=== PATIENT | female | born 1980 | race Caucasian/White ===

== ENCOUNTER 2018-07-30 20:44 | Emergency (ER) | payer OTHER ==
[2018-07-30 20:50] VITALS: BP 135/83; PULSE 73; TEMP 99.5; BMI 39.7
--- NOTE | 2018-07-30 21:18 | PDOC ---
History of Present Illness - General History Source: Patient Exam Limitations: No Limitations - History of Present Illness Initial Comments: 07/30/18 21:50 The patient is a 38 year old female, with a significant past medical history of 2 C-sections, HTN, hyperthyroidism, and migraines who presents to the emergency department with cough and cold symptoms since Sunday with 1 episode of nbnb vomiting. The patient reports her symptoms are associated with chills and body aches. The patient notes her son had similar symptoms last week. Patient reports she did not take the flu shot. The patient denies chest pain, shortness of breath, headache or dizziness. The patient denies diarrhea or constipation. The patient denies dysuria, frequency, urgency or hematuria. PAST MEDICAL HISTORY: no significant history PAST SURGICAL HISTORY: Cholecystectomy FAMILY HISTORY: no pertinent history SOCIAL HISTORY: Pt lives with family and is employed. MEDICATIONS: reviewed ALLERGIES: As per nursing notes <Gage Jefferson - Last Filed: 07/30/18 21:50> - General History Source: Patient Exam Limitations: No Limitations - History of Present Illness Initial Comments: 07/30/18 21:54 A portion of this note was documented by scribe services under my direction. I have reviewed the details of the note, within reason, and agree with the documentation with the following case summary and management plan written by me. Patient treated in the ED. Nursing notes are reviewed and incorporated into the medical decision-making. Vital signs reviewed. Assessment and plan: This is a 38-year-old female who comes in complaining of upper respiratory tract symptoms fever, chills, body ache, headaches. Patient's son had similar symptoms recently. This is day 3 of that for patient. A flu swab was attempted as patient did not get immunized against the flu. However patient was able to tolerate the procedure and refuse a flu swab so patient was started on Tamiflu and discharged. First dose was given in the ED. <Rakesh Huber I - Last Filed: 07/30/18 21:54> - General Chief Complaint: Respiratory Stated Complaint: COUGH & COLD SX Time Seen by Provider: 07/30/18 21:01 Past History <Gage Jefferson - Last Filed: 07/30/18 21:50> - Past Medical History COPD: No HTN: Yes Thyroid Disease: Yes - Surgical History Cholecystectomy: Yes - Immunization History Immunization Up to Date: Yes - Suicide/Smoking/Psychosocial Hx Smoking History: Never smoked Have you smoked in the past 12 months: No Number of Cigarettes Smoked Daily: 0 Cigars Per Day: 0 Information on smoking cessation initiated: No Hx Alcohol Use: No Drug/Substance Use Hx: No Substance Use Type: None <Rakesh Huber I - Last Filed: 07/30/18 21:54> - Past Medical History Allergies/Adverse Reactions: Allergies Allergy/AdvReac Type Severity Reaction Status Date / Time No Known Allergies Allergy Verified 07/30/18 20:45 Home Medications: Ambulatory Orders Nebivolol HCl [Bystolic] 10 mg PO DAILY 07/30/18 Oseltamivir Phosphate [Tamiflu] 75 mg PO BID #10 capsule 07/30/18 Review of Systems - Review of Systems Able to Perform ROS?: Yes Comments:: 07/30/18 21:51 General: (+)chills, (+) body aches. (+) cough. no weakness, no weight loss HEENT: No change in vision. No sore throat,. No ear pain CardioVascular: No chest pain or shortness of breath Respiratory:No cough, or wheezing. Gastrointestinal: (+) vomiting. no nausea, diarrhea or constipation, No rectal bleeding Genitourinary: No dysuria, hematuria, or frequency Musculoskeletal: No joint or muscle pain or swelling Neurologic: No headache, vertigo, dizziness or loss of consciousness Psychiatric: nor depression Skin: No rashes or easy bruising Endocrine: no increased thirst or abnormal weight change Allergic: no skin or latex allergy All other systems reviewed and normal All Other Systems: Reviewed and Negative <Gage Jefferson - Last Filed: 07/30/18 21:50> *Physical Exam - Vital Signs Last Vital Signs Temp Pulse Resp BP Pulse Ox 99.5 F 73 18 135/83 100 07/30/18 20:44 07/30/18 20:44 07/30/18 20:44 07/30/18 20:44 07/30/18 20:44 - Physical Exam Comments: 07/30/18 21:52 General: Well-nourished well-developed individual, no acute distress HEENT: Throat: Normal, tonsils normal, no erythema or exudate Neck: Supple, no meningeal signs, no lymphadenopathy Eyes::Pupils equal reactive and round, extraocular motion intact Chest: Nontender to palpation Cardiac: S1-S2 normal, regular rate and rhythm, no murmurs rubs or gallops Respiratory: Lungs clear to auscultation bilateral Extremities: Warm, dry, no cyanosis, clubbing, or edema Skin: No rashes Neuro: Alert and oriented x3, nonfocal exam, grossly intact, normal gait Psych: Normal mood and affect <Gage Jefferson - Last Filed: 07/30/18 21:50> - Vital Signs Last Vital Signs Temp Pulse Resp BP Pulse Ox 99.5 F 73 18 135/83 100 07/30/18 20:44 07/30/18 20:44 07/30/18 20:44 07/30/18 20:44 07/30/18 20:44 <Rakesh Huber I - Last Filed: 07/30/18 21:54> Moderate Sedation - Procedure Monitoring Vital Signs: Procedure Monitoring Vital Signs Temperature 99.5 F 07/30/18 20:44 Pulse Rate 73 07/30/18 20:44 Respiratory Rate 18 07/30/18 20:44 Blood Pressure 135/83 07/30/18 20:44 O2 Sat by Pulse Oximetry (%) 100 07/30/18 20:44 <Gage Jefferson - Last Filed: 07/30/18 21:50> - Procedure Monitoring Vital Signs: Procedure Monitoring Vital Signs Temperature 99.5 F 07/30/18 20:44 Pulse Rate 73 07/30/18 20:44 Respiratory Rate 18 07/30/18 20:44 Blood Pressure 135/83 07/30/18 20:44 O2 Sat by Pulse Oximetry (%) 100 07/30/18 20:44 <Rakesh Huber I - Last Filed: 07/30/18 21:54> ED Treatment Course - Medications Given in the ED: ED Medications Discontinued Medications Generic Name Dose Route Start Last Admin Trade Name Freq PRN Reason Stop Dose Admin Acetaminophen 1,000 mg 07/30/18 21:27 07/30/18 21:32 Tylenol - PO 07/30/18 21:28 1,000 mg ONCE ONE Administration Oseltamivir Phosphate 75 mg 07/30/18 21:32 07/30/18 21:34 Tamiflu - PO 07/30/18 21:33 75 mg ONCE ONE Administration <Gage Jefferson - Last Filed: 07/30/18 21:50> *DC/Admit/Observation/Transfer - Attestations Scribe Attestion: 07/30/18 21:52 Documentation prepared by Gage Jefferson, acting as biomedical field service engineer for Rakesh Huber MD <Gage Jefferson - Last Filed: 07/30/18 21:50> - Discharge Dispostion Decision to Admit order: No <Rakesh Huber I - Last Filed: 07/30/18 21:54> Diagnosis at time of Disposition: Influenza-like illness - Discharge Dispostion Disposition: HOME Condition at time of disposition: Stable - Prescriptions Prescriptions: Oseltamivir Phosphate [Tamiflu] 75 mg PO BID #10 capsule - Referrals Referrals: Emigdio Arora MD [Primary Care Provider] - - Patient Instructions Additional Instructions: Since I was unable to get an influenza screen on U I am going to go ahead and start treating him for the flu. I gave your first dose here in the emergency room and a sent a prescription to your pharmacy. Get the prescription filled and take it twice a day for 5 days. Tylenol or Motrin as needed for pain or fevers or body aches. Return to the emergency department immediately with ANY new, persistent or worsening symptoms. Continue any medications as previously prescribed by your physician. You should follow up with your primary doctor as soon as possible regarding today's emergency department visit. . Please make sure your doctor reviews the results of your emergency evaluation. Thank you for coming to the Emergency Department today for your care. It was a pleasure to see you today. Please note that your evaluation is INCOMPLETE until you follow-up with your doctor. - Post Discharge Activity
[2018-07-30] MEDS ORDERED: ACETAMINOPHEN 500 MG TABLET (FP) PO ONE (21:27)
[2018-07-30] MEDS ORDERED: OSELTAMIVIR PHOSPHATE 75 MG CAPSULE ONE (21:30)
[2018-07-30] MEDS ORDERED: ACETAMINOPHEN 500 MG TABLET (FP) ONE (21:30)
[2018-07-30] MEDS ORDERED: OSELTAMIVIR PHOSPHATE 75 MG CAPSULE PO ONE (21:32)
== END 2018-07-30 21:42 | disposition home or self-care (01) ==
LOC: FER 20:44
DX: J11.1 Influenza due to unidentified influenza virus with other respiratory manifestations (principal); I10 Essential (primary) hypertension; E07.9 Disorder of thyroid, unspecified
CPT/HCPCS: 99282-25

== ENCOUNTER 2019-02-03 13:34 | Inpatient (IN) | payer OTHER ==
--- NOTE | 2019-02-03 13:47 | PDOC ---
Rapid Medical Evaluation Time Seen by Provider: 02/03/19 13:45 Medical Evaluation: Allergies Allergy/AdvReac Type Severity Reaction Status Date / Time No Known Allergies Allergy Verified 07/30/18 20:45 02/03/19 13:45 Patient had brief in-person examination in triage cc: sent for low h&H HPI: alert and oriented x 1 no skin pallor orders: labs ordered This patient will proceed to ed for further evaluation Discharge Disposition - Diagnosis Anemia - Referrals - Patient Instructions - Post Discharge Activity
[2019-02-03 14:40] LABS: BASO % 0.8 % (0-2.0); EOS % 4.8 % (0-4.5); HEMATOCRIT 23.2 % (32.4-45.2); HEMOGLOBIN 7.3 GM/dL (10.7-15.3); LYMPH % 29.6 % (8-40); MCH 23.2 pg (25.7-33.7); MCHC 31.6 g/dl (32.0-36.0); MEAN CELL VOLUME 73.4 fl (80-96); MEAN PLT VOLUME 8.3 fl (7.5-11.1); MONO % 8.4 % (3.8-10.2); NEUT % 56.4 % (42.8-82.8); PLATELET COUNT 335 K/MM3 (134-434); RBC 3.16 M/mm3 (3.60-5.2); RDW 16.2 % (11.6-15.6); WHITE BLOOD COUNT 5.6 K/mm3 (4.0-10.0)
[2019-02-03 14:54] LABS: EPI CELLS 3.6 /HPF (0-5/HPF); HYALINE CASTS 2 /lpf (0-8); URINE APPEARANCE CLEAR; URINE BACTERIA 69.3 /hpf (NEGATIVE); URINE BILIRUBIN NEGATIVE (NEGATIVE); URINE COLOR YELLOW; URINE GLUCOSE (UA) NEGATIVE (NEGATIVE); URINE KETONE NEGATIVE (NEGATIVE); URINE LEUK ESTERASE NEGATIVE (NEGATIVE); URINE NITRITE NEGATIVE (NEGATIVE); URINE PROTEIN NEGATIVE (NEGATIVE); URINE RBC 2 /hpf (0-4); URINE UROBILINOGEN 0.2 mg/dL (0.2-1.0); URINE WBC 1 /hpf (0-5)
[2019-02-03 15:09] LABS: ALBUMIN 3.5 g/dl (3.4-5.0); BILIRUBIN,TOTAL 0.1 mg/dL (0.2-1); CALCIUM 9.9 mg/dL (8.5-10.1); CREATININE 0.9 mg/dL (0.55-1.3); POTASSIUM 4.1 mmol/L (3.5-5.1); TOT PROT 7.1 g/dl (6.4-8.2)
--- NOTE | 2019-02-03 15:19 | PDOC ---
History of Present Illness - General Chief Complaint: Blood Pressure Problem Stated Complaint: SENT BY PCP LOW H/H, HTN Time Seen by Provider: 02/03/19 13:45 - History of Present Illness Initial Comments: 02/03/19 15:16 38 yo F with h/o HTN, x 2, Hyperthyroidism, GERD, Cholecystectomy, and migraine disorder who p/w vaginal bleeding. Patient referred to ED with vaginal bleeding, and low hemoglobin per patient. Patient reports ongoing abnml vaginal bleeding beginning 09/27, with daily bleeding, and intermittent clotting. Typically requires 5 pads per day, with dark brown/red spotting. Prior TVUS (09/24/18) with thickening of the endometrial stripe with heterogeneous echotexture and tiny cystic densities, consistent with endometrial hyperplasia vs. endometrial polyps. Patient reports scheduled hysteroscopy this 02/07/19. Patient denies JAIN, vision change, palpitations, cough, wheezing, orthopena, PND , leg swelling/pain, N/V, F,C, CP, SOB, urinary complaints, vaginal/pelvic pain/ discharge, hematuria, BPR, abdominal pain, diarrhea, constipation, lightheadedness, weakness, sensory changes. PMHx: as noted above ROS: as noted SHx: Denies Etoh, IVDA, tobacco use Allergies: NKDA Past History - Past Medical History Allergies/Adverse Reactions: Allergies Allergy/AdvReac Type Severity Reaction Status Date / Time No Known Allergies Allergy Verified 02/03/19 13:48 Home Medications: Ambulatory Orders Nebivolol HCl [Bystolic] 10 mg PO DAILY 07/30/18 Oseltamivir Phosphate [Tamiflu] 75 mg PO BID #10 capsule 07/30/18 COPD: No HTN: Yes Thyroid Disease: Yes - Surgical History Cholecystectomy: Yes - Immunization History Immunization Up to Date: Yes - Suicide/Smoking/Psychosocial Hx Smoking History: Never smoked Have you smoked in the past 12 months: No Number of Cigarettes Smoked Daily: 0 Cigars Per Day: 0 Information on smoking cessation initiated: No Hx Alcohol Use: No Drug/Substance Use Hx: No Substance Use Type: None Review of Systems - Review of Systems Comments:: 02/03/19 15:18 GENERAL/CONSTITUTIONAL: No fever or chills. No weakness. HEAD, EYES, EARS, NOSE AND THROAT: No change in vision. No ear pain or discharge. No sore throat. CARDIOVASCULAR: No chest pain or shortness of breath RESPIRATORY: No cough, wheezing, or hemoptysis. GASTROINTESTINAL: No nausea, vomiting, diarrhea or constipation. GENITOURINARY: + Vaginal bleeding. No dysuria, frequency, or change in urination. MUSCULOSKELETAL: No joint or muscle swelling or pain. No neck or back pain. SKIN: No rash NEUROLOGIC: No headache, vertigo, loss of consciousness, or change in strength/ sensation. ENDOCRINE: No increased thirst. No abnormal weight change HEMATOLOGIC/LYMPHATIC: No anemia, easy bleeding, or history of blood clots. ALLERGIC/IMMUNOLOGIC: No hives or skin allergy. *Physical Exam - Vital Signs Last Vital Signs Temp Pulse Resp BP Pulse Ox 98.5 F 78 19 171/76 H 98 02/03/19 13:46 02/03/19 13:46 02/03/19 13:46 02/03/19 13:46 02/03/19 13:46 - Physical Exam Comments: 02/03/19 15:18 GENERAL: Awake, alert, and fully oriented, in no acute distress HEAD: No signs of trauma, normocephalic, atraumatic EYES: PERRLA, EOMI, sclera anicteric, conjunctiva clear ENT: Auricles normal inspection, hearing grossly normal, nares patent, oropharynx clear without exudates. Moist mucosa NECK: Normal ROM, supple, no lymphadenopathy, JVD, or masses LUNGS: No distress, speaks full sentences, clear to auscultation bilaterally HEART: Regular rate and rhythm, normal S1 and S2, no murmurs, rubs or gallops, peripheral pulses normal and equal bilaterally. ABDOMEN: Soft, nontender, normoactive bowel sounds. No guarding, no rebound. No masses EXTREMITIES : Normal inspection, Normal range of motion, no edema. No clubbing or cyanosis. NEUROLOGICAL: Cranial nerves II through XII grossly intact. Normal speech, normal gait, no focal sensorimotor deficits SKIN: Warm, Dry, normal turgor, no rashes or lesions noted ED Treatment Course - LABORATORY CBC & Chemistry Diagram: 02/03/19 14:23 02/03/19 14:23 - ADDITIONAL ORDERS Additional order review: Laboratory Results 02/03/19 02/03/19 02/03/19 14:23 14:20 14:20 Sodium 140 Potassium 4.1 Chloride 108 H Carbon Dioxide 28 Anion Gap 5 L BUN 14.0 Creatinine 0.9 Est GFR (CKD-EPI)AfAm 94.67 Est GFR (CKD-EPI)NonAf 81.68 Random Glucose 113 H Calcium 9.9 Total Bilirubin 0.1 L AST 21 ALT 21 Alkaline Phosphatase 54 Total Protein 7.1 Albumin 3.5 Urine Color Yellow Urine Appearance Clear Urine pH 7.0 Ur Specific [place] 1.018 Urine Protein Negative Urine Glucose (UA) Negative Urine Ketones Negative Urine Blood 3+ H Urine Nitrite Negative Urine Bilirubin Negative Urine Urobilinogen 0.2 Ur Leukocyte Esterase Negative Urine WBC (Auto) 1 Urine RBC (Auto) 2 Urine Casts (Auto) 2 U Epithel Cells (Auto) 3.6 Urine Bacteria (Auto) 69.3 Urine HCG, Qual Negative 02/03/19 14:23 RBC 3.16 L MCV 73.4 L MCHC 31.6 L RDW 16.2 H MPV 8.3 D Neutrophils % 56.4 D Lymphocytes % 29.6 D Monocytes % 8.4 Eosinophils % 4.8 H Basophils % 0.8 Medical Decision Making - Medical Decision Making 02/03/19 15:22 38 yo F with h/o HTN, x 2, Hyperthyroidism, GERD, Cholecystectomy, and migraine disorder who p/w vaginal bleeding. BP 171/76, vitals otherwise wnl , AF, A&Ox3. Physical exam unremarkable. Patient denies symptoms of anemia. Denies palpitations, N/V, F/C, CP, SOB, urinary complaints, vaginal/pelvic pain/ discharge, hematuria, BPR, abdominal pain, diarrhea, lightheadedness, weakness, sensory changes. Will assess for , anemia requiring transfusions, electrolyte abnml, metabolic and acid-base derangement. Ed Course: 02/03/19 15:48 Laboratory Tests 02/03/19 02/03/19 02/03/19 14:20 14:20 14:23 WBC 5.6 Hgb 7.3 L Hct 23.2 L D Plt Count 335 D Sodium Potassium BUN Creatinine Random Glucose Urine Color Yellow Urine Appearance Clear Urine Blood 3+ H Urine Nitrite Negative Ur Leukocyte Esterase Negative Urine HCG, Qual Negative 02/03/19 14:23 WBC Hgb Hct Plt Count Sodium 140 Potassium 4.1 BUN 14.0 Creatinine 0.9 Random Glucose 113 H Urine Color Urine Appearance Urine Blood Urine Nitrite Ur Leukocyte Esterase Urine HCG, Qual 02/03/19 16:12 Patient consents to PRBC 2 U 02/03/19 17:[address] [employer] [address]. Lewis, patient not candidate for emergent hysterscopy. Patient to be admitted to medicine. Endorsed to Dr. Luna. 02/03/19 17:[address] Chacon *DC/Admit/Observation/Transfer Diagnosis at time of Disposition: Anemia requiring transfusions - Discharge Dispostion Condition at time of disposition: Stable Decision to Admit order: Yes - Referrals Referrals: Emigdio Arora MD [Primary Care Provider] - - Patient Instructions Additional Instructions: Please return to the emergency department with any new or worsening symptoms or concerns. Please follow up with your primary care physician within 72 hours. - Post Discharge Activity
--- NOTE | 2019-02-03 17:21 | PDOC ---
Documentation entered by Gage Jefferson SCRIBE, acting as scribe for Manisha Bateman MD. Manisha Bateman MD: This documentation has been prepared by the Ronny powell Xhesika, SCRIBE, under my direction and personally reviewed by me in its entirety. I confirm that the documentation accurately reflects all work, treatment, procedures, and medical decision making performed by me. Attending Attestation - Resident Resident Name: Steve Parks - ED Attending Attestation I have performed the following: I have examined & evaluated the patient, The case was reviewed & discussed with the resident, I agree w/resident's findings & plan, Exceptions are as noted - HPI HPI: 02/03/19 16:18 The patient is a 38 year old female with a significant PMH of 2 C-sections, HTN , hyperthyroidism, and migraines who presents to the emergency department with vaginal bleeding and low hemoglobin. Patient states her vaginal bleeding began , associated with intermittent clotting and dark brown/red spotting. Patient notes she goes through 5 pads per day. Patient notes she had a US 09/27 that showed thickening of the endometrial stripe with heterogeneous echotexture and tiny cystic densities, consistent with endometrial hyperplasia. Patient notes she is scheduled for hysteroscopy in 4 days. The patient denies chest pain, shortness of breath, headache and dizziness. Denies fever, chills, cough, nausea, vomiting, diarrhea and constipation. Denies dysuria, frequency, urgency and hematuria. Allergies: NKDA Past surgical history: Cholecystectomy - Physicial Exam PE: GENERAL: Awake, alert, and fully oriented, in no acute distress HEAD: No signs of trauma EYES: PERRLA, EOMI, sclera anicteric, conjunctiva pale ENT: Auricles normal inspection, hearing grossly normal, nares patent, oropharynx clear without exudates. Moist mucosa NECK: Normal ROM, supple, no lymphadenopathy, JVD, or masses LUNGS: Breath sounds equal, clear to auscultation bilaterally. No wheezes, and no crackles HEART: Regular rate and rhythm, normal S1 and S2, no murmurs, rubs or gallops ABDOMEN: Soft, nontender, normoactive bowel sounds. No guarding, no rebound. No masses EXTREMITIES: Normal range of motion, no edema. No clubbing or cyanosis. No cords, erythema, or tenderness NEUROLOGICAL: Cranial nerves II through XII grossly intact. Normal speech, normal gait. Motor and sensation intact SKIN: Warm, dry, normal turgor, no rashes or lesions noted. +Pallor - Medical Decision Making Pt with anemia secondary to chronic blood loss. Scheduled for hysteroscopy on Sunday to further evaluate. Sent by PMD for transfusion.
--- NOTE | 2019-02-03 18:03 | HP ---
CHIEF COMPLAINT: bleeding PCP: Dulce HISTORY OF PRESENT ILLNESS: Pt complains of bleeding since September. She states she has been going to her doctor who has done a number of tests but has not resolved the issue. She is scheduled to have a hysteroscopy on Sun. Pt is completely asymptomatic. Pt went to see PCP today and had lab work drawn. PCP called her with result and instructed her to go to ED because of low hemoglobin. ER course was notable for: (1) Hb 7 (2) BP 171/76 (3) 2 PRBC ordered Recent Travel: denies PAST MEDICAL HISTORY: HTN, Hyperthyroid PAST SURGICAL HISTORY: cholecystectomy Social History: Smoking: no Alcohol: no Drugs: no Family History: HTN, DM Allergies No Known Allergies Allergy (Verified 02/03/19 13:48) HOME MEDICATIONS: Home Medications Medication Instructions Recorded Nebivolol HCl [Bystolic] 10 mg PO DAILY 07/30/18 Oseltamivir Phosphate [Tamiflu] 75 mg PO BID #10 capsule 07/30/18 Lisinopril 20 mg PO BID #30 tablet 02/03/19 REVIEW OF SYSTEMS CONSTITUTIONAL: Absent: fever, chills, diaphoresis, generalized weakness, malaise, loss of appetite, weight change HEENT: Absent: rhinorrhea, nasal congestion, throat pain, throat swelling, difficulty swallowing, mouth swelling, ear pain, eye pain, visual changes CARDIOVASCULAR: Absent: chest pain, syncope, palpitations, irregular heart rate, lightheadedness , peripheral edema RESPIRATORY: Absent: cough, shortness of breath, dyspnea with exertion, orthopnea, wheezing, stridor, hemoptysis GASTROINTESTINAL: Absent: abdominal pain, abdominal distension, nausea, vomiting, diarrhea, constipation, melena, hematochezia GENITOURINARY: Absent: dysuria, frequency, urgency, hesitancy, hematuria, flank pain, genital pain MUSCULOSKELETAL: Absent: myalgia, arthralgia, joint swelling, back pain, neck pain SKIN: Absent: rash, itching, pallor HEMATOLOGIC/IMMUNOLOGIC: bleeding Absent: easy bleeding, easy bruising, lymphadenopathy, frequent infections ENDOCRINE: Absent: unexplained weight gain, unexplained weight loss, heat intolerance, cold intolerance NEUROLOGIC: Absent: headache, focal weakness or paresthesias, dizziness, unsteady gait, seizure, mental status changes, bladder or bowel incontinence PSYCHIATRIC: Absent: anxiety, depression, suicidal or homicidal ideation, hallucinations. PHYSICAL EXAMINATION Vital Signs - 24 hr 08/26/19 13:46 Temperature 98.5 F Pulse Rate 78 Respiratory 19 Rate Blood Pressure 171/76 H O2 Sat by Pulse 98 Oximetry (%) Exam unremarkable Gen: Comfortable, AAOx3 HEENT: NCAT, EOMI, PERRL Neck: supple, no jvd Cardio: rrr, normal s1s2, no mrg Pulm: cta b/l abd: soft nontender Ext: no edema, 2+ pulses Laboratory Results - last 24 hr 02/03/19 02/03/19 02/03/19 14:20 14:20 14:23 WBC 5.6 RBC 3.16 L Hgb 7.3 L Hct 23.2 L D MCV 73.4 L MCH 23.2 L D MCHC 31.6 L RDW 16.2 H Plt Count 335 D MPV 8.3 D Absolute Neuts (auto) 3.2 Neutrophils % 56.4 D Lymphocytes % 29.6 D Monocytes % 8.4 Eosinophils % 4.8 H Basophils % 0.8 Nucleated RBC % 0 Sodium Potassium Chloride Carbon Dioxide Anion Gap BUN Creatinine Est GFR (CKD-EPI)AfAm Est GFR (CKD-EPI)NonAf Random Glucose Calcium Total Bilirubin AST ALT Alkaline Phosphatase Total Protein Albumin Urine Color Yellow Urine Appearance Clear Urine pH 7.0 Ur Specific [place] 1.018 Urine Protein Negative Urine Glucose (UA) Negative Urine Ketones Negative Urine Blood 3+ H Urine Nitrite Negative Urine Bilirubin Negative Urine Urobilinogen 0.2 Ur Leukocyte Esterase Negative Urine WBC (Auto) 1 Urine RBC (Auto) 2 Urine Casts (Auto) 2 U Epithel Cells (Auto) 3.6 Urine Bacteria (Auto) 69.3 Urine HCG, Qual Negative Blood Type Antibody Screen Antibody Identification Antigen Identification Crossmatch 02/03/19 02/03/19 14:23 14:23 WBC RBC Hgb Hct MCV MCH MCHC RDW Plt Count MPV Absolute Neuts (auto) Neutrophils % Lymphocytes % Monocytes % Eosinophils % Basophils % Nucleated RBC % Sodium 140 Potassium 4.1 Chloride 108 H Carbon Dioxide 28 Anion Gap 5 L BUN 14.0 Creatinine 0.9 Est GFR (CKD-EPI)AfAm 94.67 Est GFR (CKD-EPI)NonAf 81.68 Random Glucose 113 H Calcium 9.9 Total Bilirubin 0.1 L AST 21 ALT 21 Alkaline Phosphatase 54 Total Protein 7.1 Albumin 3.5 Urine Color Urine Appearance Urine pH Ur Specific [place] Urine Protein Urine Glucose (UA) Urine Ketones Urine Blood Urine Nitrite Urine Bilirubin Urine Urobilinogen Ur Leukocyte Esterase Urine WBC (Auto) Urine RBC (Auto) Urine Casts (Auto) U Epithel Cells (Auto) Urine Bacteria (Auto) Urine HCG, Qual Blood Type O POSITIVE Antibody Screen Positive Antibody Identification Anti-e Antigen Identification No Result Required. Crossmatch See Detail ASSESSMENT/PLAN: 38 y/o F with pmh htn, hyperthyroidism who presents with vaginal bleeding for 4 months with recently discovered anemia. Pt is asymptomatic #Anemia -2/2 vagnial bleeding -pt to see [facility] on Sun as out pt -Hb 7 -2 prbc started in ED -check CBC #Hyperthyroid -saw multimedia manager as outpt who said pt does not need medications #Na controlled diet Visit type - Emergency Visit Emergency Visit: Yes ED Registration Date: 02/03/19 Care time: The patient presented to the Emergency Department on the above date and was hospitalized for further evaluation of their emergent condition. - New Patient This patient is new to me today: Yes Date on this admission: 02/03/19 - Critical Care Critical Care patient: No ATTENDING PHYSICIAN STATEMENT I saw and evaluated the patient. I reviewed the resident's note and discussed the case with the resident. I agree with the resident's findings and plan as documented. SUBJECTIVE: OBJECTIVE: ASSESSMENT AND PLAN:
[2019-02-03 18:54] VITALS: BMI 39.4
--- NOTE | 2019-02-03 19:01 | PN ---
Teaching Attending Note Name of Resident: Franco Luna ATTENDING PHYSICIAN STATEMENT I saw and evaluated the patient. I reviewed the resident's note and discussed the case with the resident. I agree with the resident's findings and plan as documented. SUBJECTIVE: This is a 38 year old woman with a history of HTN, hyperthyroidism, GERD, migraine headaches who comes to the ED today for anemia and vaginal bleeding. She reports having vaginal bleeding daily since September. Pelvic and transvaginal US in September showed borderline thickening of endometrial stripe with heterogeneous echotexture and tiny cystic densities. She is scheduled for hysteroscopy on February 07. OBJECTIVE: Vital Signs Period Temp Pulse Resp BP Sys/Wynn Pulse Ox Last 24 Hr 98.5 F-98.9 F 65-80 18-20 154-171/72-89 98-99 HEART: S1S2, RRR LUNGS: Clear ABDOMEN: Obese, soft, non-tender, non-distended, normal BS EXTREMITIES: No edema Laboratory Tests 02/03/19 02/03/19 02/03/19 14:20 14:20 14:23 WBC 5.6 RBC 3.16 L Hgb 7.3 L Hct 23.2 L D MCV 73.4 L MCH 23.2 L D MCHC 31.6 L RDW 16.2 H Plt Count 335 D MPV 8.3 D Absolute Neuts (auto) 3.2 Neutrophils % 56.4 D Lymphocytes % 29.6 D Monocytes % 8.4 Eosinophils % 4.8 H Basophils % 0.8 Nucleated RBC % 0 Sodium Potassium Chloride Carbon Dioxide Anion Gap BUN Creatinine Est GFR (CKD-EPI)AfAm Est GFR (CKD-EPI)NonAf Random Glucose Calcium Total Bilirubin AST ALT Alkaline Phosphatase Total Protein Albumin Urine Color Yellow Urine Appearance Clear Urine pH 7.0 Ur Specific [place] 1.018 Urine Protein Negative Urine Glucose (UA) Negative Urine Ketones Negative Urine Blood 3+ H Urine Nitrite Negative Urine Bilirubin Negative Urine Urobilinogen 0.2 Ur Leukocyte Esterase Negative Urine WBC (Auto) 1 Urine RBC (Auto) 2 Urine Casts (Auto) 2 U Epithel Cells (Auto) 3.6 Urine Bacteria (Auto) 69.3 Urine HCG, Qual Negative Blood Type Antibody Screen Antibody Identification Antigen Identification Crossmatch 02/03/19 02/03/19 14:23 14:23 WBC RBC Hgb Hct MCV MCH MCHC RDW Plt Count MPV Absolute Neuts (auto) Neutrophils % Lymphocytes % Monocytes % Eosinophils % Basophils % Nucleated RBC % Sodium 140 Potassium 4.1 Chloride 108 H Carbon Dioxide 28 Anion Gap 5 L BUN 14.0 Creatinine 0.9 Est GFR (CKD-EPI)AfAm 94.67 Est GFR (CKD-EPI)NonAf 81.68 Random Glucose 113 H Calcium 9.9 Total Bilirubin 0.1 L AST 21 ALT 21 Alkaline Phosphatase 54 Total Protein 7.1 Albumin 3.5 Urine Color Urine Appearance Urine pH Ur Specific [place] Urine Protein Urine Glucose (UA) Urine Ketones Urine Blood Urine Nitrite Urine Bilirubin Urine Urobilinogen Ur Leukocyte Esterase Urine WBC (Auto) Urine RBC (Auto) Urine Casts (Auto) U Epithel Cells (Auto) Urine Bacteria (Auto) Urine HCG, Qual Blood Type O POSITIVE Antibody Screen Positive Antibody Identification Anti-e Antigen Identification No Result Required. Crossmatch See Detail Home Medications Medication Instructions Recorded Nebivolol HCl [Bystolic] 10 mg PO DAILY 07/30/18 Oseltamivir Phosphate [Tamiflu] 75 mg PO BID #10 capsule 07/30/18 Lisinopril 20 mg PO BID #30 tablet 02/03/19 ASSESSMENT AND PLAN: This is a 38 year old woman with a history of HTN, hyperthyroidism, GERD, migraine headaches who presented to the ED with anemia and vaginal bleeding. 1. Acute on chronic blood loss anemia secondary to abnormal uterine bleeding - Transfuse 2 units PRBCs - Monitor hemoglobin - Once hemoglobin is stable, can be discharged to follow up with mincemeat maker for hysteroscopy on 02/07 - If hemoglobin does not stabilize, will need inpatient mincemeat maker eval 2. HTN - Continue lisinopril, Bystolic 3. History of hyperthyroidism 4. Obesity with BMI 35.8
[2019-02-03] MEDS ORDERED: NEBIVOLOL 10 MG TABLET (FP) PO SCH (22:00)
[2019-02-04 06:47] LABS: HEMATOCRIT 30.5 % (32.4-45.2); HEMOGLOBIN 9.9 GM/dL (10.7-15.3); MCH 24.6 pg (25.7-33.7); MCHC 32.4 g/dl (32.0-36.0); MEAN CELL VOLUME 76.1 fl (80-96); MEAN PLT VOLUME 8.8 fl (7.5-11.1); PLATELET COUNT 323 K/MM3 (134-434); RBC 4.01 M/mm3 (3.60-5.2); RDW 16.9 % (11.6-15.6); WHITE BLOOD COUNT 6.3 K/mm3 (4.0-10.0)
--- NOTE | 2019-02-04 07:36 | PN ---
Physical Exam: SUBJECTIVE: Patient seen and examined OBJECTIVE: Vital Signs Period Temp Pulse Resp BP Sys/Wynn Pulse Ox Last 24 Hr 97.8 F-98.9 F 56-80 18-20 140-171/72-89 98-100 GENERAL: The patient is awake, alert, and fully oriented, in no acute distress. HEAD: Normal with no signs of trauma. EYES: PERRL, extraocular movements intact, sclera anicteric, conjunctiva clear. No ptosis. ENT: Ears normal, nares patent, oropharynx clear without exudates, moist mucous membranes. NECK: Trachea midline, full range of motion, supple. LUNGS: Breath sounds equal, clear to auscultation bilaterally, no wheezes, no crackles, no accessory muscle use. HEART: Regular rate and rhythm, S1, S2 without murmur, rub or gallop. ABDOMEN: Soft, nontender, nondistended, normoactive bowel sounds, no guarding, no rebound, no hepatosplenomegaly, no masses. EXTREMITIES: 2+ pulses, warm, well-perfused, no edema. NEUROLOGICAL: Cranial nerves II through XII grossly intact. Normal speech, gait not observed. PSYCH: Normal mood, normal affect. SKIN: Warm, dry, normal turgor, no rashes or lesions noted Laboratory Results - last 24 hr 02/03/19 02/03/19 02/03/19 14:20 14:20 14:23 WBC 5.6 RBC 3.16 L Hgb 7.3 L Hct 23.2 L D MCV 73.4 L MCH 23.2 L D MCHC 31.6 L RDW 16.2 H Plt Count 335 D MPV 8.3 D Absolute Neuts (auto) 3.2 Neutrophils % 56.4 D Lymphocytes % 29.6 D Monocytes % 8.4 Eosinophils % 4.8 H Basophils % 0.8 Nucleated RBC % 0 Sodium Potassium Chloride Carbon Dioxide Anion Gap BUN Creatinine Est GFR (CKD-EPI)AfAm Est GFR (CKD-EPI)NonAf Random Glucose Calcium Total Bilirubin AST ALT Alkaline Phosphatase Total Protein Albumin Urine Color Yellow Urine Appearance Clear Urine pH 7.0 Ur Specific [place] 1.018 Urine Protein Negative Urine Glucose (UA) Negative Urine Ketones Negative Urine Blood 3+ H Urine Nitrite Negative Urine Bilirubin Negative Urine Urobilinogen 0.2 Ur Leukocyte Esterase Negative Urine WBC (Auto) 1 Urine RBC (Auto) 2 Urine Casts (Auto) 2 U Epithel Cells (Auto) 3.6 Urine Bacteria (Auto) 69.3 Urine HCG, Qual Negative Blood Type Antibody Screen Antibody Identification Antigen Identification Crossmatch 02/03/19 02/03/19 02/04/19 14:23 14:23 06:20 WBC 6.3 RBC 4.01 Hgb 9.9 L Hct 30.5 L D MCV 76.1 L MCH 24.6 L MCHC 32.4 RDW 16.9 H Plt Count 323 MPV 8.8 Absolute Neuts (auto) Neutrophils % Lymphocytes % Monocytes % Eosinophils % Basophils % Nucleated RBC % Sodium 140 Potassium 4.1 Chloride 108 H Carbon Dioxide 28 Anion Gap 5 L BUN 14.0 Creatinine 0.9 Est GFR (CKD-EPI)AfAm 94.67 Est GFR (CKD-EPI)NonAf 81.68 Random Glucose 113 H Calcium 9.9 Total Bilirubin 0.1 L AST 21 ALT 21 Alkaline Phosphatase 54 Total Protein 7.1 Albumin 3.5 Urine Color Urine Appearance Urine pH Ur Specific [place] Urine Protein Urine Glucose (UA) Urine Ketones Urine Blood Urine Nitrite Urine Bilirubin Urine Urobilinogen Ur Leukocyte Esterase Urine WBC (Auto) Urine RBC (Auto) Urine Casts (Auto) U Epithel Cells (Auto) Urine Bacteria (Auto) Urine HCG, Qual Blood Type O POSITIVE Antibody Screen Positive Antibody Identification Anti-e Antigen Identification No Result Required. Crossmatch See Detail Active Medications Generic Name Dose Route Start Last Admin Trade Name Freq PRN Reason Stop Dose Admin Lisinopril 20 mg 02/04/19 08:00 Prinivil PO BID@799,1999 [facility] Nebivolol 10 mg 02/03/19 22:00 02/03/19 23:30 Bystolic - PO 10 mg HS [facility] Administration Active Medications Lisinopril (Prinivil) 20 mg PO BID@0800,1999 [facility] Nebivolol (Bystolic -) 10 mg PO HS [facility] Last Admin: 02/03/19 23:30 Dose: 10 mg ASSESSMENT/PLAN: ATTENDING PHYSICIAN STATEMENT I saw and evaluated the patient. I reviewed the resident's note and discussed the case with the resident. I agree with the resident's findings and plan as documented. SUBJECTIVE: OBJECTIVE: ASSESSMENT AND PLAN:
[2019-02-04] MEDS ORDERED: LISINOPRIL 20 MG TABLET (FP) PO SCH (08:00)
[2019-02-04 08:40] LABS: INR 0.99 (0.83-1.09); PROTHROMBIN TIME (PATIENT) 11.7 SEC (9.7-13.0)
[2019-02-04 08:43] LABS: ACTIVATED PTT 28.2 SECONDS (25.2-36.5)
[2019-02-04 10:13] VITALS: BP 167/79; PULSE 61; TEMP 98.9
--- NOTE | 2019-02-04 12:20 | PN ---
Teaching Attending Note Name of Resident: Franco Luna ATTENDING PHYSICIAN STATEMENT I saw and evaluated the patient. I reviewed the resident's note and discussed the case with the resident. I agree with the resident's findings and plan as documented with exceptions below. SUBJECTIVE: Patient seen and examined. No complaints eager to go home OBJECTIVE: Vital Signs Period Temp Pulse Resp BP Sys/Wynn Pulse Ox Last 24 Hr 97.8 F-98.9 F 56-80 18-20 140-171/72-89 98-100 Intake & Output 02/01/19 02/02/19 02/03/19 02/04/19 23:59 23:59 23:59 23:59 Intake Total 1350 Balance 1350 Weight 195 lb 3 oz General: ambulating in room no acute distress, obesity: BMI 39.4 Neck: soft supple Chest; no rales or wheezing Abdomen:soft, obese, NT Extremities: no edema Home Medications Medication Instructions Recorded Nebivolol HCl [Bystolic] 10 mg PO DAILY 07/30/18 Lisinopril 20 mg PO BID #30 tablet 02/03/19 Laboratory Results - last 24 hr 02/03/19 02/03/19 02/03/19 14:20 14:20 14:23 WBC 5.6 RBC 3.16 L Hgb 7.3 L Hct 23.2 L D MCV 73.4 L MCH 23.2 L D MCHC 31.6 L RDW 16.2 H Plt Count 335 D MPV 8.3 D Absolute Neuts (auto) 3.2 Neutrophils % 56.4 D Lymphocytes % 29.6 D Monocytes % 8.4 Eosinophils % 4.8 H Basophils % 0.8 Nucleated RBC % 0 PT with INR INR PTT (Actin FS) Sodium Potassium Chloride Carbon Dioxide Anion Gap BUN Creatinine Est GFR (CKD-EPI)AfAm Est GFR (CKD-EPI)NonAf Random Glucose Calcium Total Bilirubin AST ALT Alkaline Phosphatase Total Protein Albumin Urine Color Yellow Urine Appearance Clear Urine pH 7.0 Ur Specific [place] 1.018 Urine Protein Negative Urine Glucose (UA) Negative Urine Ketones Negative Urine Blood 3+ H Urine Nitrite Negative Urine Bilirubin Negative Urine Urobilinogen 0.2 Ur Leukocyte Esterase Negative Urine WBC (Auto) 1 Urine RBC (Auto) 2 Urine Casts (Auto) 2 U Epithel Cells (Auto) 3.6 Urine Bacteria (Auto) 69.3 Urine HCG, Qual Negative Blood Type Antibody Screen Antibody Identification Antigen Identification Crossmatch 02/03/19 02/03/19 02/04/19 14:23 14:23 06:20 WBC 6.3 RBC 4.01 Hgb 9.9 L Hct 30.5 L D MCV 76.1 L MCH 24.6 L MCHC 32.4 RDW 16.9 H Plt Count 323 MPV 8.8 Absolute Neuts (auto) Neutrophils % Lymphocytes % Monocytes % Eosinophils % Basophils % Nucleated RBC % PT with INR INR PTT (Actin FS) Sodium 140 Potassium 4.1 Chloride 108 H Carbon Dioxide 28 Anion Gap 5 L BUN 14.0 Creatinine 0.9 Est GFR (CKD-EPI)AfAm 94.67 Est GFR (CKD-EPI)NonAf 81.68 Random Glucose 113 H Calcium 9.9 Total Bilirubin 0.1 L AST 21 ALT 21 Alkaline Phosphatase 54 Total Protein 7.1 Albumin 3.5 Urine Color Urine Appearance Urine pH Ur Specific [place] Urine Protein Urine Glucose (UA) Urine Ketones Urine Blood Urine Nitrite Urine Bilirubin Urine Urobilinogen Ur Leukocyte Esterase Urine WBC (Auto) Urine RBC (Auto) Urine Casts (Auto) U Epithel Cells (Auto) Urine Bacteria (Auto) Urine HCG, Qual Blood Type O POSITIVE Antibody Screen Positive Antibody Identification Anti-e Antigen Identification No Result Required. Crossmatch See Detail 02/04/19 06:20 WBC RBC Hgb Hct MCV MCH MCHC RDW Plt Count MPV Absolute Neuts (auto) Neutrophils % Lymphocytes % Monocytes % Eosinophils % Basophils % Nucleated RBC % PT with INR 11.70 INR 0.99 PTT (Actin FS) 28.2 Sodium Potassium Chloride Carbon Dioxide Anion Gap BUN Creatinine Est GFR (CKD-EPI)AfAm Est GFR (CKD-EPI)NonAf Random Glucose Calcium Total Bilirubin AST ALT Alkaline Phosphatase Total Protein Albumin Urine Color Urine Appearance Urine pH Ur Specific [place] Urine Protein Urine Glucose (UA) Urine Ketones Urine Blood Urine Nitrite Urine Bilirubin Urine Urobilinogen Ur Leukocyte Esterase Urine WBC (Auto) Urine RBC (Auto) Urine Casts (Auto) U Epithel Cells (Auto) Urine Bacteria (Auto) Urine HCG, Qual Blood Type Antibody Screen Antibody Identification Antigen Identification Crossmatch ASSESSMENT AND PLAN: 38 yof with acute on chronic anemia and abnormal uterine bleeding. -Acute on chronic blood loss anemia from abnormal uterine bleeding -Endometrial hyperplasia -h/o hyperthyroidism -Obesity (BMI 39.4) Plan: Appropriate response to PRBC. Patient has hysteroscopy planned for 02/07. Advised CBC follow up in 1 week D/c home today, plan discussed with patient and nursing, all questions answered.
--- NOTE | 2019-02-04 14:15 | DS ---
Physical Exam: SUBJECTIVE: Patient seen and examined at bedside. No complaints. OBJECTIVE: Vital Signs Period Temp Pulse Resp BP Sys/Wynn Pulse Ox Last 24 Hr 97.8 F-98.9 F 56-80 18-20 140-167/72-89 99-100 PHYSICAL EXAM Gen: Comfortable, AAOx3 HEENT: NCAT, EOMI, PERRL Neck: supple, no jvd Cardio: rrr, normal s1s2, no mrg Pulm: cta b/l abd: soft nontender Ext: no edema, 2+ pulses LABS Laboratory Results - last 24 hr 02/03/19 02/03/19 02/03/19 14:20 14:20 14:23 WBC 5.6 RBC 3.16 L Hgb 7.3 L Hct 23.2 L D MCV 73.4 L MCH 23.2 L D MCHC 31.6 L RDW 16.2 H Plt Count 335 D MPV 8.3 D Absolute Neuts (auto) 3.2 Neutrophils % 56.4 D Lymphocytes % 29.6 D Monocytes % 8.4 Eosinophils % 4.8 H Basophils % 0.8 Nucleated RBC % 0 PT with INR INR PTT (Actin FS) Sodium Potassium Chloride Carbon Dioxide Anion Gap BUN Creatinine Est GFR (CKD-EPI)AfAm Est GFR (CKD-EPI)NonAf Random Glucose Calcium Total Bilirubin AST ALT Alkaline Phosphatase Total Protein Albumin Urine Color Yellow Urine Appearance Clear Urine pH 7.0 Ur Specific [place] 1.018 Urine Protein Negative Urine Glucose (UA) Negative Urine Ketones Negative Urine Blood 3+ H Urine Nitrite Negative Urine Bilirubin Negative Urine Urobilinogen 0.2 Ur Leukocyte Esterase Negative Urine WBC (Auto) 1 Urine RBC (Auto) 2 Urine Casts (Auto) 2 U Epithel Cells (Auto) 3.6 Urine Bacteria (Auto) 69.3 Urine HCG, Qual Negative Blood Type Antibody Screen Antibody Identification Antigen Identification Crossmatch 02/03/19 02/03/19 02/04/19 14:23 14:23 06:20 WBC 6.3 RBC 4.01 Hgb 9.9 L Hct 30.5 L D MCV 76.1 L MCH 24.6 L MCHC 32.4 RDW 16.9 H Plt Count 323 MPV 8.8 Absolute Neuts (auto) Neutrophils % Lymphocytes % Monocytes % Eosinophils % Basophils % Nucleated RBC % PT with INR INR PTT (Actin FS) Sodium 140 Potassium 4.1 Chloride 108 H Carbon Dioxide 28 Anion Gap 5 L BUN 14.0 Creatinine 0.9 Est GFR (CKD-EPI)AfAm 94.67 Est GFR (CKD-EPI)NonAf 81.68 Random Glucose 113 H Calcium 9.9 Total Bilirubin 0.1 L AST 21 ALT 21 Alkaline Phosphatase 54 Total Protein 7.1 Albumin 3.5 Urine Color Urine Appearance Urine pH Ur Specific [place] Urine Protein Urine Glucose (UA) Urine Ketones Urine Blood Urine Nitrite Urine Bilirubin Urine Urobilinogen Ur Leukocyte Esterase Urine WBC (Auto) Urine RBC (Auto) Urine Casts (Auto) U Epithel Cells (Auto) Urine Bacteria (Auto) Urine HCG, Qual Blood Type O POSITIVE Antibody Screen Positive Antibody Identification Anti-e Antigen Identification No Result Required. Crossmatch See Detail 02/04/19 06:20 WBC RBC Hgb Hct MCV MCH MCHC RDW Plt Count MPV Absolute Neuts (auto) Neutrophils % Lymphocytes % Monocytes % Eosinophils % Basophils % Nucleated RBC % PT with INR 11.70 INR 0.99 PTT (Actin FS) 28.2 Sodium Potassium Chloride Carbon Dioxide Anion Gap BUN Creatinine Est GFR (CKD-EPI)AfAm Est GFR (CKD-EPI)NonAf Random Glucose Calcium Total Bilirubin AST ALT Alkaline Phosphatase Total Protein Albumin Urine Color Urine Appearance Urine pH Ur Specific [place] Urine Protein Urine Glucose (UA) Urine Ketones Urine Blood Urine Nitrite Urine Bilirubin Urine Urobilinogen Ur Leukocyte Esterase Urine WBC (Auto) Urine RBC (Auto) Urine Casts (Auto) U Epithel Cells (Auto) Urine Bacteria (Auto) Urine HCG, Qual Blood Type Antibody Screen Antibody Identification Antigen Identification Crossmatch HOSPITAL COURSE: Date of Admission:02/03/19 Date of Discharge: 02/04/19 Pt is a 38 y/o F with PMH HTN, Hyperthyroid (not on medication) who presented to ED with complaint of Vaginal bleeding x 4 months and anemia discovered by her PCP during routine lab work. She has been seeing her outpt WEAVING LOOM OPERATOR who was planning to do a hysteroscopy this Fri as part of her workup. The patient was admitted with a hemoglobin of 7 and was transfused to 9.9. She has been asymptomatic throughout her stay. She is stable for discharge with instructions to follow up with her PCP for repeat lab work and to keep her appointment with her WEAVING LOOM OPERATOR. Minutes to complete discharge: 30 Discharge Summary Reason For Visit: TRANSFUSION-DEPENDENT ANEMIA,VAGINAL BLEEDING Condition: Stable - Instructions Diet, Activity, Other Instructions: You were in the hospital because of anemia from vaginal bleeding. Continue your home BP medications as before Please see your regular doctor in 1 week. You need to follow up with your WEAVING LOOM OPERATOR doctor for your hysteroscopy on Sunday. You need to repeat your blood counts (CBC) in 1 week with your regular doctor If you develop symptoms like bleeding, dizziness or weakness, please call your doctor or return to the emergency department. Referrals: Kenyon Ortiz MD [Staff Physician] - Disposition: HOME - Home Medications Comprehensive Discharge Medication List: Ambulatory Orders Nebivolol HCl [Bystolic] 10 mg PO DAILY 07/30/18 Lisinopril 20 mg PO BID #30 tablet 02/03/19 This patient is new to me today: No Emergency Visit: No Critical Care patient: No - Discharge Referral Referred to [facility] Yes Physician Referral: Emigdio Cardona MD ([facility]) ATTENDING PHYSICIAN STATEMENT I saw and evaluated the patient. I reviewed the resident's note and discussed the case with the resident. I agree with the resident's findings and plan as documented. SUBJECTIVE: OBJECTIVE: ASSESSMENT AND PLAN:
== END 2019-02-04 11:44 | disposition home or self-care (01) | DRG 663 ==
LOC: JER 13:34 → JERBED 16:16 → J6S 18:23
PROVIDERS: ADMIT Internal Medicine; ATTEND Hospitalist
PROC: 30233N1 Transfusion of Nonautologous Red Blood Cells into Peripheral Vein, Percutaneous Approach (ICD-10-PCS; principal; 2019-02-03)
DX: D62 Acute posthemorrhagic anemia (principal); N93.9 Abnormal uterine and vaginal bleeding, unspecified; I10 Essential (primary) hypertension; E05.80 Other thyrotoxicosis without thyrotoxic crisis or storm; E66.8 Other obesity; Z68.35 Body mass index [BMI] 35.0-35.9, adult; K21.9 Gastro-esophageal reflux disease without esophagitis; G43.809 Other migraine, not intractable, without status migrainosus; N85.00 Endometrial hyperplasia, unspecified
CPT/HCPCS: 36415; 36430; 80053; 81003; 84703; 85025; 85027; 85610; 85730; 86850; 86870; 86900; 86901; 86902; 86922; 99285-25; P9038; P9058

== ENCOUNTER 2019-02-07 10:47 | Day surgery (SDC) | payer OTHER ==
[2019-02-06 12:41] VITALS: BMI 39.4
--- NOTE | 2019-02-07 14:11 | HP ---
History & Physical Update - Physical Physical: No Change - Assessment Assessment: No Change - Plan Plan: No Change
[2019-02-07] MEDS ORDERED: LIDOCAINE HCL/PF 2% SDV 5ML VIAL ONE (14:43)
[2019-02-07] MEDS ORDERED: PROPOFOL 20 ML ONE (14:43)
[2019-02-07] MEDS ORDERED: MIDAZOLAM HCL 2 MG/2 ML SINGLE DOSE VIAL ONE (14:44)
--- NOTE | 2019-02-07 14:46 | OP ---
Operative Note - Note: Operative Date: 02/07/19 (Dic# [id number]) Pre-Operative Diagnosis: AUB Operation: Diagnostic hysteroscopy, D&C Findings: see dictation Post-Operative Diagnosis: Same as Pre-op Surgeon: Kenyon Ortiz Anesthesia: MAC Specimens Removed: Endometrial curetting Estimated Blood Loss (mls): 10 Operative Report Dictated: Yes
[2019-02-07] MEDS ORDERED: DEXAMETHASONE SOD PHOSPHATE 4 MG/1 ML VIAL ONE (15:05)
[2019-02-07] MEDS ORDERED: KETOROLAC TROMETHAMINE 30 MG/1 ML VIAL ONE (15:11)
[2019-02-07] MEDS ORDERED: ONDANSETRON 4 MG/2 ML VIAL IVPUSH PRN (15:41)
[2019-02-07] MEDS ORDERED: oxyCODONE HCL 5 MG TABLET PO PRN (15:41)
[2019-02-07] MEDS ORDERED: LACTATED RINGERS SOLUTION 1,000 ML IV SCH (15:45)
--- NOTE | 2019-02-07 16:25 | OP ---
DATE OF OPERATION: 02/07/2019 PREOPERATIVE DIAGNOSIS: A 38-year-old female with longstanding abnormal uterine bleeding, obese. POSTOPERATIVE DIAGNOSIS: A 38-year-old female with longstanding abnormal uterine bleeding, obese. PROCEDURE: Diagnostic hysteroscopy and dilatation and curettage. SURGEON: Sunita Ferrer MD INDUCTION HEAT TREATER: None. ANESTHESIA: MAC. ESTIMATED BLOOD LOSS FOR THE PROCEDURE: 10 mL/minimal. INTRAVENOUS FLUIDS: Per Anesthesia. FLUID DEFICIT: 150 mL. COMPLICATIONS: None. DESCRIPTION OF PROCEDURE: Patient was taken to the operating room where anesthesia was found to be adequate. She was then prepped and draped in normal sterile fashion. Metal retractors were utilized to visualize the cervix which was posterior, and its anterior lip was grasped with a single-tooth tenaculum, progressively dilated to accommodate the hysteroscope. The hysteroscope was advanced to the fundus without difficulty, and endometrial cavity was examined thoroughly. The endometrium was noted to be lush, and no isolated focal lesion noted. The hysteroscope was removed, and a thorough D&C carried out without difficulty. Following conclusion of the D&C, evaluation with the hysteroscope revealed proper procedure completion. The hysteroscope was removed, and no active bleeding was noted from the cervical os. A small area of oozing was controlled with silver nitrate at the tenaculum site. Excellent hemostasis was noted. All instruments were retrieved. Patient tolerated the procedure well and is going to recovery room in stable condition. Instrument count was reported as correct x2 by the staff. SUNITA FERRER MD [id number] MTDD
[2019-02-07 18:30] VITALS: BP 145/67; PULSE 58; TEMP 97.8
--- NOTE | 2019-02-12 17:41 | PATH ---
Surgical Pathology Report Patient Name: ARGELIA MOELLER Med. Rec. #: [id number] /Age/Gender: 1980 (Age: 38) / F Account: [id number] Location: [facility] SURGICAL Taken: 02/07/2019 Received: 02/11/2019 Reported: 02/12/2019 Physicians: Kenyon Ortiz MD Specimen(s) Received ENDOMETRIAL CURETTINGS Clinical History Abnormal uterine bleeding Final Diagnosis ENDOMETRIAL CURETTINGS, DILATATION CURETTAGE: POLYPOID FRAGMENTS OF DISORDERED PROLIFERATIVE ENDOMETRIUM WITH GLANDULAR AND STROMAL BREAKDOWN, AND FOCAL SQUAMOUS METAPLASIA. FRAGMENTS OF BENIGN ECTOCERVICAL SQUAMOUS MUCOSA AND ENDOCERVICAL TISSUE WITH SQUAMOUS METAPLASIA. Electronically Signed Angelia Flowers M.D. Gross Description Received in formalin, labeled "endometrial curettings" is a 4.5 x 3 x 0.5 cm aggregate of lama and brown soft tissue. Entirely submitted in three cassettes. AE/02/11/2019 ebram/02/11/2019
== END 2019-02-07 17:45 | disposition home or self-care (01) ==
LOC: JASU-SURG 10:47
PROVIDERS: ATTEND Student in an Organized Health Care Education/Training Program
PROC: 0UJD8ZZ Inspection of Uterus and Cervix, Via Natural or Artificial Opening Endoscopic (ICD-10-PCS; 2019-02-07)
PROC: 0UDB7ZX Extraction of Endometrium, Via Natural or Artificial Opening, Diagnostic (ICD-10-PCS; principal; 2019-02-07 13:00)
DX: N93.9 Abnormal uterine and vaginal bleeding, unspecified (principal); E66.9 Obesity, unspecified; Z68.39 Body mass index [BMI] 39.0-39.9, adult
CPT/HCPCS: 84703; 88305-TC; 94760

== ENCOUNTER 2021-10-24 04:34 | Day surgery (SDC) | payer OTHER ==
[2021-10-20 11:00] VITALS: BMI 43.2
[2021-10-24] MEDS ORDERED: PROPOFOL 20 ML ONE (12:52)
[2021-10-24] MEDS ORDERED: MIDAZOLAM HCL 2 MG/2 ML SINGLE DOSE VIAL ONE (12:52)
[2021-10-24] MEDS ORDERED: FENTANYL CITRATE/PF 50 MCG/ML VIAL ONE (13:01)
[2021-10-24] MEDS ORDERED: KETOROLAC TROMETHAMINE 30 MG/1 ML VIAL ONE (13:04)
[2021-10-24] MEDS ORDERED: DEXAMETHASONE SOD PHOSPHATE 4 MG/1 ML VIAL ONE (13:04)
[2021-10-24] MEDS ORDERED: IBUPROFEN 400 MG TABLET (FP) PO PRN (13:08)
[2021-10-24] MEDS ORDERED: ACETAMINOPHEN 325 MG TABLET (FP) PO PRN (13:08)
[2021-10-24] MEDS ORDERED: ceFAZolin SODIUM 1 GM VIAL ONE (13:12)
[2021-10-24] MEDS ORDERED: oxyCODONE HCL 5 MG TABLET PO PRN (14:26)
[2021-10-24] MEDS ORDERED: ONDANSETRON 4 MG/2 ML VIAL IVPUSH PRN (14:26)
[2021-10-24] MEDS ORDERED: LACTATED RINGERS SOLUTION 1,000 ML IV SCH (14:30)
[2021-10-24 14:39] VITALS: BP 114/69; PULSE 56; TEMP 97.7
== END 2021-10-24 15:50 | disposition home or self-care (01) ==
LOC: JASU-SURG 04:34
PROVIDERS: ATTEND Obstetrics & Gynecology
PROC: 0UB98ZZ Excision of Uterus, Via Natural or Artificial Opening Endoscopic (ICD-10-PCS; principal; 2021-10-24 12:00)
PROC: 0UDB8ZX Extraction of Endometrium, Via Natural or Artificial Opening Endoscopic, Diagnostic (ICD-10-PCS; 2021-10-24 12:00)
DX: N92.0 Excessive and frequent menstruation with regular cycle (principal); D25.0 Submucous leiomyoma of uterus; N84.0 Polyp of corpus uteri
CPT/HCPCS: 81025; 88305-TC; 94760

== ENCOUNTER 2021-10-31 16:49 | Emergency (ER) | payer OTHER ==
[2021-10-31 17:01] VITALS: TEMP 98.6; BMI 41.8
[2021-10-31 20:43] VITALS: BP 168/89; PULSE 66
== END 2021-10-31 23:09 | disposition home or self-care (01) ==
LOC: JER 16:49
DX: I10 Essential (primary) hypertension (principal)
CPT/HCPCS: 93005; 93010; 99284-25